=== PATIENT | male | born 1945 | race Caucasian/White ===

== ENCOUNTER 2020-11-06 19:42 | Emergency (ER) | payer MEDICARE, OTHER, SELFPAY ==
[2020-11-06 19:44] VITALS: BP 145/85; PULSE 85; RESP 19; TEMP 36.3; O2SAT 85; BMI 55.2
--- NOTE | 2020-11-06 19:52 | PC.NURSE ---
Pt is now alert and talking after receiving 1 amp of D50 via IVP.
--- NOTE | 2020-11-06 19:54 | PC.NURSE ---
Repeat FSBS 83 at this time
--- NOTE | 2020-11-06 19:57 | CT_ITS ---
PROCEDURE INFORMATION: Exam: CT Head Without Contrast Exam date and time: 11/06/2020 7:57 PM Age: 75 years old Clinical indication: Patient HX: Dizziness, confusion, diabetic episode TECHNIQUE: Imaging protocol: Computed tomography of the head without contrast. 3D rendering (Not supervised by radiologist): MIP and/or 3D reconstructed images were created by the technologist. Radiation optimization: All CT scans at this facility use at least one of these dose optimization techniques: automated exposure control; mA and/or kV adjustment per patient size (includes targeted exams where dose is matched to clinical indication); or iterative reconstruction. COMPARISON: No relevant prior studies available. FINDINGS: Brain: Left occipital encephalomalacia. White matter changes compatible with small vessel occlusive change. No mass. No hemorrhage. Cerebral ventricles: No ventriculomegaly. Paranasal sinuses: No fluid levels. Mastoid air cells: Visualized mastoid air cells are well aerated. Bones/joints: No acute fracture. Soft tissues: No significant soft tissue abnormality. IMPRESSION: Left occipital encephalomalacia compatible with prior ischemia.
--- NOTE | 2020-11-06 19:58 | PC.NURSE ---
late entry: Pt arrived at [facility] by [facility] with possible diabetic emergency. Pt blood glucose on arrival was too low to read. Pt was diaphoretic and unable to answer questions. IV access attempted to left AC unsuccessful. Iv access placed to left hand at 194, and 1 amp of D50 IVP was given by DEB Burger. Within 5 minutes of administration, patient was alert and speaking normally. Pt repeat fsbs was 83. pt remains alert at this time, and is speaking to staff. Pt is now eating a snack. Will continue to monitor.
[2020-11-06 19:59] LABS: POC Glucose,Bedside 83 (70-110)
[2020-11-06 20:00] LABS: Basophils % 0.4 % (0.1-2.0); Eosinophils # 0.2 K/mm3 (0.0-0.4); Eosinophils % 1.7 % (0.1-12.0); Hematocrit 38.2 % (42.0-52.0); Hemoglobin 12.5 g/dL (14.1-18.0); Lymphocytes # 2.2 K/mm3 (0.7-4.5); Lymphocytes % 21.5 % (10-50); Mean Corpuscular HGB Conc 32.7 g/dL (31.8-35.4); Mean Corpuscular Hemoglobin 30.5 pg (27.0-31.2); Mean Corpuscular Volume 93.2 fl (80-94); Mean Platelet Volume 7.9 fl (7.4-10.4); Monocytes # 0.7 K/mm3 (0.1-1.0); Monocytes % 6.5 % (1.7-9.3); Neutrophils % 69.9 % (37.0-80.0); Platelet Count 294 K/mm3 (142-424); Red Blood Count 4.09 M/mm3 (4.60-6.20); Red Cell Distribution Width 16.4 % (11.5-17.5)
--- NOTE | 2020-11-06 20:04 | ECG_ITS ---
APPROVED REPORT Exam: Resting ECG HR:77 bpm ECG Measurements Heart Rate 77 AXES QRSd 114 QRS 33 QT 366 T 80 QTc 414 Conclusion Atrial fibrillation with premature ventricular or aberrantly conducted complexes Late R wave progression Abnormal ECG Electronically signed by : Roney Spangler MD 11/07/2020 11:37:19
[2020-11-06 20:09] LABS: Alanine Aminotransferase 24 U/L (12-78); Albumin Level 3.8 g/dl (3.5-5.0); Albumin/Globulin Ratio 1.3 (1.1-1.8); Alkaline Phosphatase 98 U/L (38-126); Anion Gap 12.3 mEq/L (5-15); Aspartate Amino Transferase 63 U/L (17-59); Bilirubin,Total 1.9 mg/dl (0.2-1.3); Blood Urea Nitrogen 14 mg/dl (9-20); Calcium 8.6 mg/dl (8.4-10.2); Carbon Dioxide 29 mmol/L (22.0-30.0); Chloride 104 mmol/L (98-107); Creatinine Clearance Estimated 66 mL/min (50-200); Estimated Glomerular Filt Rate 73 ml/min (>60); GFR (African American) 88 ML/MIN (>60); Glucose 100 mg/dl (74-100); Potassium 3.3 mmoL/L (3.5-5.1); Sodium 142 mmol/L (136-145); Total Protein,Serum 6.8 g/dl (6.3-8.2)
--- NOTE | 2020-11-06 20:15 | PC.NURSE ---
pt to radiology
--- NOTE | 2020-11-06 20:15 | [facility].EDGENADL ---
ED Disposition Condition on Discharge: Fair - Critical Care Critical Care Time: Yes Total Critical Care Time: 65 Vital system(s) involved:: Central Nervous System, Metabolic Failure My critical care processes included: Assessment & monitoring of V/S, Initial and Re-exams, Data Review/Interpretation, Medication Orders and management, Documentation <Peter Pérez - Last Filed: 11/06/20 20:15> Condition on Discharge: Good <Marvin Padgett - Last Filed: 11/06/20 23:09> Clinical Impression: Hypoglycemia, Encephalopathy acute UTI (urinary tract infection) Qualifiers: Urinary tract infection type: acute cystitis Hematuria presence: without hematuria Qualified Code(s): N30.00 - Acute cystitis without hematuria Disposition: Home, Self-Care Instructions: DI for Hypoglycemia, DI for Urinary Tract Infection (UTI) Additional Instructions: Do not use insulin tonight. Resume using your insulin tomorrow. Antibiotic as prescribed. Additional instructions for URINARY TRACT INFECTION: Take antibiotic as prescribed. See your physician in 2-3 days for follow up and culture results. Return immediately if you have an uncontrollable fever greater than 102 degrees, severe back or abdominal pain, inability to urinate, or repetitive vomiting. Prescriptions: Ciprofloxacin HCl [Cipro 500mg Tab] 500 mg PO BID #20 tab Prescription Printed Referrals: Provider,Referral, MD [Primary Care Provider] - Attestation: On 11/06/20, the high probability of a clinically significant, sudden or life threatening deterioration of the following system(s) required my full and direct attention, intervention and personal management. The time I documented below is in addition to time spent performing reported procedures but includes the following listed in this critical care notation. Medical Decision Making - [place] Inquiry Pt receiving controlled substance: No - Lab Data Result diagrams: 11/06/20 19:50 11/06/20 19:50 <Peter Pérez - Last Filed: 11/06/20 20:15> - Lab Data Result diagrams: 11/06/20 19:50 11/06/20 19:50 - CT Data CT Scan: Head Time Received: 21:[address] Reviewed: Yes: I have viewed the radiologist's interpretation <Marvin Padgett - Last Filed: 11/06/20 23:09> Vital Signs: 11/06/20 19:44 11/06/20 21:31 Temperature 97.4 F L Temperature Source Oral Pulse Rate 65 Pulse Rate [Left Brachial] 85 Respiratory Rate 19 17 Blood Pressure 130/65 Blood Pressure [Left Arm] 145/85 H Blood Pressure Mean [Left Arm] 105 02 Sat by Pulse Oximetry 85 L 99 Oxygen Delivery Method Room Air - Lab Data Lab Results 11/06/20 19:50: WBC 10.0, RBC 4.09 L, Hgb 12.5 L, Hct 38.2 L, MCV 93.2, MCH 30.5, MCHC 32.7, RDW 16.4, Plt Count 294, MPV 7.9, Neut % (Auto) 69.9, Lymph % (Auto) 21.5, [place] % (Auto) 6.5, Eos % (Auto) 1.7, Baso % (Auto) 0.4, Neut # (Auto) 7.0, Lymph # (Auto) 2.2, [place] # (Auto) 0.7, Eos # (Auto) 0.2, Baso # (Auto) 0.0 11/06/20 19:50: Sodium 142, Potassium 3.3 L, Chloride 104, Carbon Dioxide 29, Anion Gap 12.3, BUN 14, Creatinine 1.00, Estimated Creat Clear 66, Estimated GFR 73, Est GFR ( Amer) 88, Glucose 100, Calcium 8.6, Total Bilirubin 1.9 H, AST 63 H, ALT 24, Alkaline Phosphatase 98, Total Protein 6.8, Albumin 3.8, Globulin 3.0, Albumin/Globulin Ratio 1.3 11/06/20 19:53: POC Glucose 83 11/06/20 21:45: POC Glucose 92 11/06/20 22:20: Urine Color Bev, Urine Appearance Sl cloudy, Urine pH 5.0, Ur Specific [place] >= 1.030, Urine Protein Trace, Urine Glucose (UA) Negative, Urine Ketones Trace, Urine Blood Negative, Urine Nitrate Negative, Urine Bilirubin Negative, Urine Urobilinogen >=8.0, Ur Leukocyte Esterase Trace, Urine WBC 20-50, Ur Squamous Epith Cells 3-5, Urine Bacteria 1+ 11/06/20 22:56: POC Glucose 92 Orders (Tests/Meds): ED MEDICATIONS Generic Name Dose Route Start Last Admin Trade Name Freq PRN Reason Stop Dose Admin Ceftriaxone Sodium 1 gm/ 50 mls @ 100 mls/hr 11/06/20 23:04 Sod
[2020-11-06 21:31] VITALS: BP 130/65; PULSE 65; RESP 17; O2SAT 99
[2020-11-06 21:52] LABS: POC Glucose,Bedside 92 (70-110)
[2020-11-06 22:29] LABS: Microscopic, Urine URINE MICROSCOPIC (MICROSCOPIC)
[2020-11-06 22:31] LABS: Appearance,Urine SL CLOUDY (Clear); Blood, Urine Negative (Negative); Color,Urine AMBER (Yellow); Glucose,Urine (UA) Negative (Negative); Ketones,Urine TRACE (Negative); Leukocyte Esterase,Urine TRACE (Negative); Nitrate,Urine Negative (Negative); Protein,Urine TRACE (Negative); Specific Gravity, Urine >= 1.030 (1.005-1.030); Urobilinogen,Urine >=8.0 EU/dl (0.2)
[2020-11-06 22:40] LABS: Bilirubin,Urine Negative (Negative)
[2020-11-06 22:41] LABS: Bacteria,Urine 1+ /lpf; WBC,Urine 20-50 #/hpf (0-3)
[2020-11-06 23:03] LABS: POC Glucose,Bedside 92 (70-110)
[2020-11-06 23:28] VITALS: BP 127/62; PULSE 78; RESP 16; TEMP 36.9; O2SAT 94
== END 2020-11-06 23:30 | disposition home or self-care (01) ==
PROVIDERS: Emergency Provider Emergency Medicine
DX: N30.00 Acute cystitis without hematuria (principal); G93.40 Encephalopathy, unspecified; E11.649 Type 2 diabetes mellitus with hypoglycemia without coma; I48.0 Paroxysmal atrial fibrillation; J44.9 Chronic obstructive pulmonary disease, unspecified; K21.9 Gastro-esophageal reflux disease without esophagitis; I10 Essential (primary) hypertension; E78.5 Hyperlipidemia, unspecified; F33.1 Major depressive disorder, recurrent, moderate; Z86.73 Personal history of transient ischemic attack (TIA), and cerebral infarction without residual deficits; Z79.899 Other long term (current) drug therapy
CPT/HCPCS: 70450; 80053; 81001; 82962; 85025; 87086; 93005; 96366; 96367; 96374; 99283

== ENCOUNTER → 2021-07-03 12:17 | Outpatient (CLI) | payer MEDICARE, OTHER, SELFPAY | PROVIDERS: Visit Provider Obstetrics & Gynecology Gynecology | DX: Z01.812 Encounter for preprocedural laboratory examination (principal); Z11.52 Encounter for screening for COVID-19 | CPT/HCPCS: C9803; U0003; U0005 ==

== ENCOUNTER → 2021-07-31 11:15 | Outpatient (CLI) | payer MEDICARE, OTHER, SELFPAY | PROVIDERS: Visit Provider Obstetrics & Gynecology Gynecology | DX: Z01.812 Encounter for preprocedural laboratory examination (principal); Z11.52 Encounter for screening for COVID-19 | CPT/HCPCS: C9803; U0003; U0005 ==